=== PATIENT | female | born 1945 | race African-American/Black ===

== ENCOUNTER 2019-05-02 11:55 | Day surgery (SDC) | payer OTHER ==
[2019-05-01 13:16] VITALS: BMI 24.5
[2019-05-02] MEDS ORDERED: LIDOCAINE HCL/PF 2% SDV 5ML VIAL ONE (13:10)
[2019-05-02] MEDS ORDERED: PROPOFOL 20 ML ONE (13:10)
[2019-05-02 15:04] VITALS: BP 135/84; PULSE 84; TEMP 97.9
== END 2019-05-02 15:04 | disposition home or self-care (01) ==
LOC: FASU-ENDO 11:55
PROVIDERS: ATTEND Internal Medicine Gastroenterology
PROC: 0DJD8ZZ Inspection of Lower Intestinal Tract, Via Natural or Artificial Opening Endoscopic (ICD-10-PCS; principal; 2019-05-02 13:12)
DX: K92.1 Melena (principal); K64.1 Second degree hemorrhoids; K57.30 Diverticulosis of large intestine without perforation or abscess without bleeding; K56.609 Unspecified intestinal obstruction, unspecified as to partial versus complete obstruction